=== PATIENT | male | born 1945 | race Caucasian/White ===

== ENCOUNTER 2017-12-07 06:06 | Day surgery (SDC) | payer OTHER ==
[~2017-12-07 06:06] MED LIST: ACETAMINOPHEN 325 MG TAB PO
[2017-12-07] MEDS: LIDOCAINE 3.5 % 1ML OPHTH TOPICAL GEL OU (06:55)
[2017-12-07] MEDS ORDERED: PHENYLEPHRINE HCL 10 % OPHTH. SOL 5ML XX (07:00)
[2017-12-07] MEDS: CYCLOPENTOLATE 2% OPHTH SOLN 2ML BTL XX (07:00)
[2017-12-07] MEDS: PHENYLEPHRINE 2.5% OPHTH SOL 2ML XX (07:05)
[2017-12-07] MEDS: TROPICAMIDE 1% OPHTH SOLN 2ML XX (07:10)
[2017-12-07] MEDS: OFLOXACIN 0.3 % (OCUFLOX) OPTH SOL 5ML XX (07:10)
[2017-12-07 07:22] LABS: BEDSIDE GLUCOSE 109 MG/DL (83-110)
[2017-12-07] MEDS ORDERED: MIDAZOLAM INJ 2 MG/2 ML VIAL (J2250) As Ordered (07:26)
[2017-12-07] MEDS ORDERED: fentaNYL 100 MCG/2 ML INJECTION (J3010) As Ordered (07:27)
[2017-12-07] MEDS: POVIDONE-IODINE 5% OPHTH PREP SOL 30ML As Ordered (07:50)
[2017-12-07] MEDS: TRIAMCINOLONE PRES FR 40 MG/ML 1ML(TRIESENCE)(OR EYE ONLY)(J3300 PER 1MG) As Ordered (07:55)
[2017-12-07] MEDS: LIDOCAINE 1% SDV 5 ML VIAL As Ordered (07:55)
[2017-12-07] MEDS: MOXIFLOXACIN IN BSS 0.25MG/0.25ML INTRACAMERAL INJ (OR EYE ONLY)(J2280) As Ordered (07:55)
[2017-12-07] MEDS: BSS with VANC/TOB/EPI for EYE CASES IR (07:55)
[2017-12-07] MEDS: HEALON DUET (HEALON 10MG/ML 0.55ML & HEALON ENDOCOAT 30MG/ML 0.85ML) As Ordered (07:55)
[2017-12-07] MEDS ORDERED: TRIMETHOBENZAMIDE 300 MG CAP PO (08:30)
[2017-12-07] MEDS: AcetaZOLAMIDE 500 MG ER CAP PO (08:42)
== END 2017-12-07 08:55 | disposition home or self-care (01) ==
LOC: M SDC 06:06
DX: H25.9 Unspecified age-related cataract (principal); E11.9 Type 2 diabetes mellitus without complications; I10 Essential (primary) hypertension; E78.5 Hyperlipidemia, unspecified; Z79.82 Long term (current) use of aspirin; Z79.899 Other long term (current) drug therapy; N40.0 Benign prostatic hyperplasia without lower urinary tract symptoms
CPT/HCPCS: 66984

== ENCOUNTER 2019-04-09 13:50 | Emergency (ER) | payer OTHER ==
[~2019-04-09] VITALS: Ht 182.9 cm; Wt 93.7 kg
[~2019-04-09 13:50] MED LIST changes: -ACETAMINOPHEN 325 MG TAB PO; +ASPI81TA26 PO; +METF750T36 PO; +PRAV40TA2 PO; +RAMI1CAP22 PO
[2019-04-09 15:39] LABS: INR 1.09; PROTHROMBIN TIME 13.8 SECONDS (11.8-14.0)
[2019-04-09 15:40] LABS: PARTIAL THROMBOPLASTIN TIME 29.3 SECONDS (25.0-38.4)
[2019-04-09 15:58] LABS: NT-PRO BNP 125 PG/ML (<125); TROPONIN I < 0.02 NG/ML (< 0.10)
[2019-04-09 17:01] LABS: HEMATOCRIT 45.7 % (42.0-52.0); HEMOGLOBIN 15.3 g/dl (13.5-17.5); MEAN CORPUSCULAR HGB CONC 33.5 g/dl (32.0-36.5); MEAN CORPUSCULAR VOLUME 95.6 fl (80.0-96.0); PLATELET COUNT, AUTOMATED 188 10^3/uL (150-450); RED BLOOD COUNT 4.78 10^6/uL (4.30-6.10); WHITE BLOOD COUNT 6.9 10^3/uL (4.0-10.0)
[2019-04-09 17:05] LABS: BLOOD UREA NITROGEN 24 MG/DL (7-18); CALCIUM LEVEL 9.7 MG/DL (8.8-10.2); CARBON DIOXIDE LEVEL 27 MEQ/L (21-32); CHLORIDE LEVEL 107 MEQ/L (98-107); CREATININE FOR GFR 1.12 MG/DL (0.70-1.30); GLOMERULAR FILTRATION RATE > 60.0 (>42); GLUCOSE, FASTING 100 MG/DL (70-100); POTASSIUM SERUM 4.1 MEQ/L (3.5-5.1); SODIUM LEVEL 140 MEQ/L (136-145)
[2019-04-09] MEDS ORDERED: ELIQ5TAB PO (17:39)
[2019-04-09] MEDS ORDERED: APIXABAN 5 MG TAB (ELIQUIS) PO ONE (17:45)
[2019-04-09 17:48] VITALS: BP 133/82
[2019-04-10 11:10] LABS: DRVV SCREEN 47.4 SEC
[2019-04-10 11:22] LABS: PTT LUPUS TYPE ANTICOAG SCREEN 1.2 (0-1.2)
[2019-04-10 11:31] LABS: DRVV CONFIRM 36.5 SEC; LUPUS CONFIRM RATIO 0.9
[2019-04-10 11:35] LABS: NORMALIZED RATIO 1.33 (0.00-1.20)
[2019-04-12 08:06] LABS: HEXAGONAL PHASE PHOSPHOLIPID 10 sec (0-11)
[2019-04-17 00:07] LABS: ANTI THROMBIN 3 ANTIGEN IMMUNO 100 % (72-124); ANTI THROMBIN 3 FUNCT ACTIVITY 105 % (75-135); CARDIOLIPIN IGA ANTIBODY <9 APL U/mL (0-11); CARDIOLIPIN IGG ANTIBODY 10 GPL U/mL (0-14); CARDIOLIPIN IGM ANTIBODY 10 MPL U/mL (0-12); PHOSPHOLIPIDS LEVEL 209 mg/dL (150-250); PROTEIN C FUNCTIONAL ACTIVITY 112 % (73-180); PROTEIN S FUNCTIONAL ACTIVITY 91 % (63-140)
[2019-07-11] MEDS ORDERED: ELIQ5TAB PO (08:50)
[2019-07-11] MEDS ORDERED: D3400CAP PO (08:54)
[2019-07-11] MEDS ORDERED: MAGN100T PO (08:54)
[2019-07-11] MEDS ORDERED: CVS1CAP2 PO (08:54)
[2019-07-11] MEDS ORDERED: POTA10808 PO (08:54)
== END 2019-04-09 17:51 | disposition home or self-care (01) ==
LOC: M ED 13:50
DX: I82.4Z2 Acute embolism and thrombosis of unspecified deep veins of left distal lower extremity (principal); M79.89 Other specified soft tissue disorders; E11.9 Type 2 diabetes mellitus without complications; I10 Essential (primary) hypertension; Z79.899 Other long term (current) drug therapy; Z79.01 Long term (current) use of anticoagulants; Z79.84 Long term (current) use of oral hypoglycemic drugs; Z79.82 Long term (current) use of aspirin

== ENCOUNTER → 2019-10-11 | Outpatient (CLI) | payer OTHER ==
[~2019-10-11] MED LIST changes: +CVS1CAP2 PO; +D3400CAP PO; +ELIQ5TAB PO; +MAGN100T PO; +POTA10808 PO
--- NOTE | 2019-10-12 02:21 | REP ---
Clinical: Venous insufficiency. Technique: Real time mcpherson scale and color Doppler evaluation using linear high frequency transducer with reflux evaluation. Findings: There is a small focus of nonocclusive thrombus in the left popliteal vein. There is no evidence for thrombus in the right lower extremity. Reflux evaluation of the right lower extremity demonstrates mild reflux through the deep system including common femoral vein, distal superficial femoral vein and popliteal vein up to 6.3 seconds duration. Reflux evaluation of the left lower extremity demonstrates reflux through the deep system including the common femoral vein and distal superficial femoral vein up to 3.9 seconds duration. Reflux in the greater saphenous vein noted proximally measuring 12 mm with 6 seconds duration, at the mid greater saphenous vein measuring 6 mm diameter with 7.4 seconds duration, and distal greater saphenous vein at the knee measuring 5 mm diameter with 5.8-second duration. Reflux at the lesser saphenous vein measuring 2 mm diameter with 5-second duration. Impression: 1. Small focus of thrombus in the left popliteal vein. 2. Reflux in the left superficial system (greater saphenous vein and lesser saphenous vein) as well as mild reflux through the bilateral deep venous system. Electronically Signed by Aj Veliz MD 10/12/2019 02:13 A
== END ==
LOC: M RAD 07:55
PROVIDERS: ATTEND Surgery Vascular Surgery
DX: I87.2 Venous insufficiency (chronic) (peripheral) (principal); Z86.718 Personal history of other venous thrombosis and embolism

== ENCOUNTER → 2020-05-12 | Outpatient (REF) | payer OTHER ==
[2020-05-12 19:23] LABS: APPEARANCE, URINE CLEAR (CLEAR); BACTERIA, URINE AUTO NEGATIVE (NEGATIVE); BILIRUBIN, URINE AUTO NEGATIVE (NEGATIVE); BLOOD, URINE BLOOD 2+ (NEGATIVE); COLOR, URINE YELLOW (YELLOW); GLUCOSE, URINE (UA) AUTO NEGATIVE (NEGATIVE); KETONE, URINE AUTO NEGATIVE (NEGATIVE); LEUKOCYTE ESTERASE, URINE AUTO NEGATIVE (NEGATIVE); NITRITE, URINE AUTO NEGATIVE (NEGATIVE); PROTEIN, URINE AUTO NEGATIVE (NEGATIVE); RBC, URINE AUTO 55 /HPF (0-3); SPECIFIC GRAVITY URINE AUTO 1.016 (1.002-1.035); SQUAMOUS EPITHELIAL CELL UR AU 0 /HPF (0-6); UROBILINOGEN, URINE AUTO 0.2 mg/dL (0.0-2.0); WBC, URINE AUTO 5 /HPF (0-3)
== END ==
LOC: M LAB REF 16:55
PROVIDERS: ATTEND Nurse Practitioner Family
DX: N39.0 Urinary tract infection, site not specified (principal)
CPT/HCPCS: 81001; 87086; G0463

== ENCOUNTER → 2020-06-10 | Outpatient (CLI) | payer OTHER ==
--- NOTE | 2020-06-17 13:36 | REPPI ---
TRANSRECTAL PROSTATE SONOGRAPHY HISTORY: Elevated prostate-specific antigen (PSA). FINDINGS: Transrectal sonographic dimensions of the prostate are 6.2 x 5.0 x 6.5 cm. Calculated glandular volume is 104 mL. Heterogeneous enlargement of the central gland with calcific and cystic changes are identified. Seminal vesicles are unremarkable. No mass lesion is seen. Transrectal sonographic guidance is provided to Dr. Wiseman who performed transrectal ultrasound-guided needle biopsy procedure. [facility]
== END ==
LOC: M SMT PRO 09:19
PROVIDERS: ATTEND Urology
DX: R97.20 Elevated prostate specific antigen [PSA] (principal)
CPT/HCPCS: 52000; 55700; 76872; G0416

== ENCOUNTER → 2021-09-25 | Outpatient (CLI) | payer OTHER ==
[~2021-09-25] MED LIST changes: +B-122500 PO
== END ==
LOC: M LABSMTC 10:33
PROVIDERS: ATTEND Anesthesiology
DX: Z01.812 Encounter for preprocedural laboratory examination (principal); Z20.822 Contact with and (suspected) exposure to COVID-19

== ENCOUNTER → 2022-02-24 | Outpatient (CLI) | payer OTHER | LOC: M RAD 13:12 | PROVIDERS: ATTEND Family Medicine | DX: I73.9 Peripheral vascular disease, unspecified (principal) ==

== ENCOUNTER → 2022-07-07 | Outpatient (REF) | payer OTHER | LOC: M SFHCDERM 17:30 | PROVIDERS: ATTEND Physician Assistant | DX: C44.01 Basal cell carcinoma of skin of lip (principal) ==

== ENCOUNTER → 2022-07-27 | Outpatient (REF) | payer OTHER | LOC: M SFHCDERM 17:29 | PROVIDERS: ATTEND Physician Assistant | DX: C44.309 Unspecified malignant neoplasm of skin of other parts of face (principal) ==

== ENCOUNTER → 2022-11-04 | Outpatient (REF) | payer OTHER | LOC: M SFHCDERM 17:07 | PROVIDERS: ATTEND Physician Assistant | DX: L08.9 Local infection of the skin and subcutaneous tissue, unspecified (principal) ==

== ENCOUNTER → 2023-01-10 | Outpatient (CLI) | payer OTHER ==
[~2023-01-10] MED LIST changes: +ISOVUE-370 76% 100ML VIAL As Ordered ONE
== END ==
LOC: M RAD 14:22
PROVIDERS: ATTEND Nurse Practitioner Family
DX: K86.2 Cyst of pancreas (principal); N28.1 Cyst of kidney, acquired
CPT/HCPCS: 74178; Q9967

== ENCOUNTER 2023-03-22 10:25 | Emergency (ER) | payer MEDICARE, OTHER ==
[~2023-03-22] VITALS: Ht 182.9 cm; Wt 91.3 kg
[~2023-03-22 10:25] MED LIST changes: -ISOVUE-370 76% 100ML VIAL As Ordered ONE
[2023-03-22 10:26] VITALS: BP 140/81; TEMP 98.2; O2SAT 96
[2023-03-22] MEDS ORDERED: NORCO, ANEXSIA 5/325MG TABLET (HYDROcodone/ACETAMINOPHEN) PO ONE (14:40)
[2023-03-22] MEDS ORDERED: HYDR-3713 PO (14:42)
[2023-03-22] MEDS ORDERED: LIDOCAINE 5% (LIDODERM) PATCH TD ONE (14:45)
== END 2023-03-22 14:53 | disposition home or self-care (01) ==
LOC: M ED 10:25
DX: M19.011 Primary osteoarthritis, right shoulder (principal); E11.9 Type 2 diabetes mellitus without complications; Z86.718 Personal history of other venous thrombosis and embolism; Z85.828 Personal history of other malignant neoplasm of skin; Z79.01 Long term (current) use of anticoagulants; Z88.8 Allergy status to other drugs, medicaments and biological substances; Z79.899 Other long term (current) drug therapy

== ENCOUNTER → 2023-07-29 | Outpatient (REF) | payer OTHER ==
[~2023-07-29] MED LIST changes: +HYDR-3713 PO
== END ==
LOC: M SFHCDERM 17:20
PROVIDERS: ATTEND Physician Assistant
DX: D04.122 Carcinoma in situ of skin of left lower eyelid, including canthus (principal); L57.8 Other skin changes due to chronic exposure to nonionizing radiation

== ENCOUNTER → 2023-08-09 | Outpatient (CLI) | payer OTHER ==
[~2023-08-09] MED LIST changes: +PROHANCE 279.3MG/ML 15ML VIAL As Ordered ONE; +PROHANCE 279.3MG/ML 5ML VIAL As Ordered ONE
== END ==
LOC: M RAD 14:48
PROVIDERS: ATTEND Orthopaedic Surgery Hand Surgery
DX: M25.831 Other specified joint disorders, right wrist (principal)
CPT/HCPCS: 73223; A9576

== ENCOUNTER 2023-12-02 05:57 | Day surgery (SDC) | payer OTHER ==
[~2023-12-02] VITALS: Ht 182.9 cm; Wt 90.7 kg
[~2023-12-02 05:57] MED LIST changes: +ALIG4CAP PO; +PRES1CHW PO; -PROHANCE 279.3MG/ML 15ML VIAL As Ordered ONE; -PROHANCE 279.3MG/ML 5ML VIAL As Ordered ONE; +ROSU5TAB5 PO
[2023-12-02] MEDS ORDERED: ceFAZolin SOD 2 GM in IV 1 EA IV ONE (06:00)
[2023-12-02] MEDS ORDERED: LIDOCAINE 2% 100MG/5ML SDV (FOR ANES.) As Ordered ONE (07:17)
[2023-12-02] MEDS ORDERED: propofoL 200 MG/20 ML VIAL As Ordered ONE (07:17)
[2023-12-02] MEDS ORDERED: fentaNYL 100 MCG/2 ML INJECTION As Ordered ONE (07:17)
[2023-12-02] MEDS ORDERED: KETOROLAC 60MG 2ML VIAL As Ordered ONE (07:17)
[2023-12-02] MEDS ORDERED: ONDANSETRON 4MG 2ML VIAL As Ordered ONE (07:17)
[2023-12-02] MEDS: BACITRACIN OINTMENT 30GM TUBE As Ordered ONE (07:50)
[2023-12-02] MEDS ORDERED: LR 1,000 ML IV SCH (08:10)
[2023-12-02] MEDS ORDERED: ONDANSETRON 4MG 2ML VIAL IV PRN (08:10)
[2023-12-02] MEDS ORDERED: oxyCODONE 5MG TAB PO PRN (08:10)
[2023-12-02] MEDS ORDERED: HYDROMORPHONE HCL 0.5 MG/ 0.5 ML SYRINGE IV PRN (08:10)
[2023-12-02] MEDS ORDERED: fentaNYL 100 MCG/2 ML INJECTION IV PRN (08:10)
[2023-12-02 09:03] VITALS: BP 125/74; TEMP 98; O2SAT 95
== END 2023-12-02 09:15 | disposition home or self-care (01) ==
LOC: M SDC 05:57
PROVIDERS: ATTEND Orthopaedic Surgery Hand Surgery
DX: D21.11 Benign neoplasm of connective and other soft tissue of right upper limb, including shoulder (principal); E11.9 Type 2 diabetes mellitus without complications; E78.00 Pure hypercholesterolemia, unspecified; Z86.718 Personal history of other venous thrombosis and embolism; Z79.899 Other long term (current) drug therapy; Z79.01 Long term (current) use of anticoagulants; Z79.84 Long term (current) use of oral hypoglycemic drugs; Z85.828 Personal history of other malignant neoplasm of skin; Z88.8 Allergy status to other drugs, medicaments and biological substances
CPT/HCPCS: 25075; 88305; J0665; J1100; J1885; J2405; J3010

== ENCOUNTER → 2025-05-27 | Outpatient (CLI) | payer OTHER ==
[~2025-05-27] MED LIST changes: -ALIG4CAP PO; +ALIG4CAP3 PO; -POTA10808 PO; +POTA10809 PO; -PRAV40TA2 PO; +PRAV40TA85 PO; -RAMI1CAP22 PO; +RAMI2.5C42 PO; +ROSU5TAB49 PO; -ROSU5TAB5 PO
== END ==
LOC: M PLARAD 07:58
PROVIDERS: ATTEND Dermatology
DX: D03.9 Melanoma in situ, unspecified (principal)
CPT/HCPCS: 78816; A9552

== ENCOUNTER 2025-07-24 09:44 | Day surgery (SDC) | payer MEDICARE, OTHER ==
[~2025-07-24] VITALS: Ht 182.9 cm; Wt 89.4 kg
[~2025-07-24 09:44] MED LIST changes: +ALBUTEROL SULFATE 2.5 MG/0.5 ML INH CONCENTRATE NEB SOLN INH ONE; +ALPH600C2 PO; +BIFI1CAP PO; +COQ150CH PO; +LIDOCAINE 2% 100 MG/5 ML SDV (FOR ANES.) As Ordered ONE; +LIDOCAINE PRES-FREE 2% 10 ML AMP INH ONE; +MIDAZOLAM INJ 2 MG/2 ML VIAL As Ordered ONE; +OMEG10002 PO; +ROCURONIUM BROMIDE 50MG/5ML VIAL As Ordered ONE; +VITA100093 PO; +VITA200C21 PO
[2025-07-24] MEDS ORDERED: LR 1,000 ML IV SCH (10:15)
[2025-07-24 10:53] LABS: PLATELET COUNT, AUTOMATED 192 10^3/uL (150-450)
[2025-07-24 11:07] LABS: CALCIUM LEVEL 9.4 MG/DL (8.3-10.6); CARBON DIOXIDE LEVEL 28.0 MMOL/L (20-31); CHLORIDE LEVEL 105.0 MMOL/L (98-107); CREATININE FOR GFR 1.15 MG/DL (0.70-1.30); GLOMERULAR FILTRATION RATE 64.7 (>42); POTASSIUM SERUM 4.0 MMOL/L (3.5-5.1); SODIUM LEVEL 140.0 MMOL/L (136-145)
[2025-07-24] MEDS ORDERED: dexAMETHasone 4 MG/ML 1 ML VIAL As Ordered ONE (11:55)
[2025-07-24] MEDS: CETACAINE SPRAY 5 GM As Ordered ONE (11:55)
[2025-07-24] MEDS ORDERED: SUGAMMADEX SODIUM 500 MG/5 ML VIAL As Ordered ONE (11:55)
[2025-07-24] MEDS ORDERED: ONDANSETRON 4MG/2ML VIAL As Ordered ONE (11:55)
[2025-07-24] MEDS: EPINEPHrine 1 MG/10 ML SYRINGE 1.5IN As Ordered ONE (12:10)
[2025-07-24] MEDS ORDERED: MORPHINE 2 MG/ML 1 ML VIAL IV PRN (12:25)
[2025-07-24] MEDS ORDERED: ONDANSETRON 4MG/2ML VIAL IV PRN (12:25)
[2025-07-24 13:30] VITALS: BP 116/80; TEMP 97.9; O2SAT 94
== END 2025-07-24 13:34 | disposition home or self-care (01) ==
LOC: M SDC 09:44
PROVIDERS: ATTEND Internal Medicine Pulmonary Disease
DX: R91.8 Other nonspecific abnormal finding of lung field (principal); R59.0 Localized enlarged lymph nodes; E11.9 Type 2 diabetes mellitus without complications; Z88.8 Allergy status to other drugs, medicaments and biological substances; Z79.899 Other long term (current) drug therapy
CPT/HCPCS: 31653; 36415; 71045; 80048; 85027; 88173; 88305; 93005; J1100; J2250; J2405; J3010